=== PATIENT | female | born 1960 | race Caucasian/White ===

== ENCOUNTER 2018-09-14 10:30 | Observation (INO) | payer BC ==
--- NOTE | 2018-09-14 10:43 | PDOC ---
History of Present Illness - General Chief Complaint: Weakness Stated Complaint: WEAKNESS Time Seen by Provider: 09/14/18 10:42 History Source: Patient Exam Limitations: No Limitations - History of Present Illness Initial Comments: 09/14/18 10:51 HPI 57-year-old female with history hypothyroidism, high cholesterol and prediabetes not on medications, NHL (no chemo, on surveillance) presenting with right lower extremity heaviness/weakness after getting out of the shower this morning at approximately 9:45 AM. No prior similar symptoms. Mild right perioral numbness/tingling noted. Most of her symptoms have since resolved. No gait abnormalities noted. no falls. History significant for CAD/MD in her parents. no h/o CVA. Denies fever, chills, chest pain, SOB, palpitation, dizziness, N, V, D, abdominal pain, bladder and bowel problems, urinary sx, leg swelling, No sick contacts or travel. No new changes in medications. - currently on crestor and synthroid, diet controlled for glycemic control Allergies: tetracycline Past Medical History: hypothyroidism, high cholesterol and prediabetes Social history: Lives with family. former smoker. No alcohol. No illicit drugs. Surgical history: appendectomy, rotator cuff surgery ROS Constitutional: no fevers or chills. HEENT: no headache or dizziness. No congestion. No visual/hearing disturbances. CVS: no cp or syncope. Resp: no sob. No cough. Gastrointestinal: no abdominal pain, nausea or vomiting. Genitourinary: no urinary sx, hematuria. MUSCULOSKELETAL: No joint pain and swelling. No neck or back pain. SKIN: no redness or skin changes, no discharge, no rash. No wounds. Hematologic: no easy bruising/bleeding. NEUROLOGIC: No headache, dizziness, LOC or altered mental status. +weakness, numbness or tingling. Allergic/Immunologic: no allergies All other systems reviewed and negative, or as documented in HPI. PE: General: Well appearing, awake and alert, NAD. HEENT: NCAT, PERRL, EOMI, clear conjunctiva, anicteric, moist mucus membranes, clear oropharynx, no oral lesions.. Neck: neck supple, FROM; no carotid bruit. no JVD. Resp: CTAB, normal and even respirations, no respiratory distress CVS: RRR, no murmurs, 2+ peripheral pulses throughout, no peripheral edema Abdomen: soft, NTND, no peritoneal signs. Back: nontender, normal inspection and ROM MSK: no edema, RODRIGUEZ x4, ROM intact. No clubbing or cyanosis. normal bulk and tone. Extremities: no calf tenderness Neuro: Alert, oriented to person time and place. CN II-XII grossly intact. Strength prox and distally 5/5 throughout. Sensation grossly intact to light touch. RODRIGUEZ x4. No cerebellar signs, no dysmetria, bilateral finger to nose and heel to ewing equal and symmetric. Speech clear. Skin: warm and well perfused, cap refill <2 sec, normal color 09/14/18 11:10 tPA Exclusion Checklist 0-3hr - Time Elapsed Date last known well: 09/14/18 Time last known well: 09:45 Elaspsed time: Day(s) and 3 Hour(s) and 3 Minutes - Thrombolytic Therapy Candidate Is the patient eligible for Thrombolytic Therapy?: No - Exclusion Criteria 0-3hr SBP greater than 185 or DBP greater than 110mmHg despite tx: No Recent IC/spinal surgery,head trauma or stroke w/in last 3mo: No Hx of previous IC hemorrhage, IC neoplasm, AVM or aneurysm: No Active internal bleeding: No Blding diathesis(low plt ct, inc PTT,INR>1.7 or use of NOAC): No Symptoms suggest subarachnoid hemorrhage: No CT demonstrates multilobar infarct(>1/3 cerebral hemiphere): No Arterial puncture at noncompressible site in previous 7 days: No Blood glucose concentration less than 50mg/dL (2.7mmol/L): No - Relative Exclusion Criteria 0-3h Life expectancy <1yr/severe co-morbid illness/CURRICULUM ASSISTANT on admit: No : No Patient/family refused: No Rapid improvement: Yes Stroke severity too mild: Yes Recent acute MD (w/in previous 3 months): No Seizure at onset with postictal residual neuro impairments: No Major surgery or serious trauma w/in previous 14 days: No Recent GI or hemorrhage (w/in previous 21 days): No - Ineligibility reason(s) Reasons No tPA given: See reason(s) noted above (resolved symptoms) NIH Stroke Scale - Last Known Well Date/Time & Onset Date Last Known Well: 09/14/18 Time Last Known Well: 09:45 - Initial Evaluation Level of consciousness: Alert Ask patient the month and their age: Answers both correctly Ask patient to open & close eyes; make fist and let go: Obeys both correctly Best gaze (horizontal eye movement): Normal Visual field testing: No visual field loss Facial paresis (Show teeth/raise eyebrows/close eyes tight): Normal symmetrical movement Motor Function: Left Arm: Normal Motor Function: Right Arm: Normal (extends arm 90 (or 45) degrees for 10 seconds without drift Motor Function: Left Leg: Normal (extends leg 30 degrees for 5 seconds without drift) Motor Function: Right Leg: Normal (extends leg 30 degrees for 5 seconds without drift) Limb Ataxia: No ataxia Sensory(Use pinprick test arms,legs,trunk,face/side to side): Normal Best language (Describe picture, name items, read sentences): No Aphasia Dysarthria (read several words): Normal articulation Extinction and Inattention: No abnormality - Total Score NIH Stroke Scale Score: 0 Past History - Past Medical History Allergies/Adverse Reactions: Allergies Allergy/AdvReac Type Severity Reaction Status Date / Time Tetracyclines Allergy Hives Verified 09/14/18 10:32 Home Medications: Ambulatory Orders Aspirin [Aspirin EC] 81 mg PO ASDIR 09/14/18 Levothyroxine [Synthroid -] 100 mcg PO DAILY 09/14/18 Statin 10 mg PO DAILY 09/14/18 COPD: No Diabetes: (PREDIABETIC) Hypercholesterolemia: Yes Thyroid Disease: Yes - Suicide/Smoking/Psychosocial Hx Smoking History: Former smoker Have you smoked in the past 12 months: No Information on smoking cessation initiated: No Hx Alcohol Use: (social) *Physical Exam - Vital Signs Last Vital Signs Temp Pulse Resp BP Pulse Ox 98.7 F 91 H 18 135/70 100 09/14/18 10:30 09/14/18 10:30 09/14/18 10:30 09/14/18 10:30 09/14/18 10:30 Moderate Sedation - Procedure Monitoring Vital Signs: Procedure Monitoring Vital Signs Temperature 98.7 F 09/14/18 10:30 Pulse Rate 91 H 09/14/18 10:30 Respiratory Rate 18 09/14/18 10:30 Blood Pressure 135/70 09/14/18 10:30 O2 Sat by Pulse Oximetry (%) 100 09/14/18 10:30 Heart Score/ECG Review #1 ECG reviewed & interpreted by me at: 10:45 General ECG Interpretation: Sinus Rhythm Compared to previous ECG there are: Previous ECG unavail 09/14/18 12:27 EKG normal sinus rhythm at 91bpm, no interval abnormalities, narrow QRS, ST and T wave segments and morphology normal. ED Treatment Course - LABORATORY CBC & Chemistry Diagram: 09/14/18 10:55 09/14/18 10:55 Medical Decision Making - Medical Decision Making 09/14/18 10:49 See HPI for details Diff dx CVA, neuropathy, TIA. electrolyte/metabolic derangements. arrhythmia, weakness, msk strain, spasm NIHSS zero, no focal neuro deficits as documented, Vital signs reviewed, wnl. Prior notes reviewed, including admissions, discharges and consultations. laboratory results and imaging reviewed, basic labs and lytes wnl Cardiac panel_neg trop, reassuring. lipid panel unremarkable EKG normal sinus rhythm, no interval abnormalities, narrow QRS, ST and T wave segments and morphology normal. Nonischemic Head CT negative for intracranial abnormality or CVA, volume loss noted ED course not Tpa CANDIDATE, as risks outweigh benefits. mild subjective sx pt notes, no neuro deficits elicited, NIHSS zero s/o to THERMODYNAMICS PROFESSOR Gordy. obs tele, r/o TIA vs stroke, with RLE weakness without objective neuro deficits noted)., MRI brain with neg CT imaging. admit to Dr Kumar 09/14/18 12:28 09/14/18 12:48 09/14/18 12:50 *DC/Admit/Observation/Transfer Diagnosis at time of Disposition: Transient right leg weakness - Discharge Dispostion Condition at time of disposition: Stable Decision to Admit order: Yes Decision to Admit order Date/Time: 09/14/18 12:26 Decision to Admit Order Category Date Time Status Decision to Admit to Hospital Routine Admission 09/14/18 12:25 Ordered - Referrals - Patient Instructions - Post Discharge Activity
[2018-09-14] MEDS ORDERED: ALPRAZolam 0.25 MG TABLET PO ONE (10:51)
[2018-09-14] MEDS ORDERED: ALPRAZolam 0.25 MG TABLET ONE (10:53)
[2018-09-14] MEDS: SODIUM CHLORIDE 1,000 ML IV SCH (11:08)
[2018-09-14 11:10] LABS: BASO % 0.7 % (0-2.0); EOS % 1.1 % (0-4.5); HEMATOCRIT 39.6 % (32.4-45.2); HEMOGLOBIN 13.2 GM/dl (10.7-15.3); LYMPH % 42.3 % (8-40); MCH 30.8 pg (25.7-33.7); MCHC 33.4 g/dl (32.0-36.0); MEAN CELL VOLUME 92.2 fl (80-96); MEAN PLT VOLUME 8.3 fl (7.5-11.1); MONO % 6.9 % (3.8-10.2); PLATELET COUNT 251 K/MM3 (134-434); RDW 12.4 % (11.6-15.6)
[2018-09-14 11:39] LABS: INR 1.03 (0.82-1.09); PROTHROMBIN TIME (PATIENT) 11.5 SEC (10.2-13.0)
[2018-09-14 11:41] LABS: ALK PHOS 52 U/L (45-117); ANION GAP 6 MMOL/L (8-16); BILIRUBIN,TOTAL 0.3 mg/dl (0.2-1); BLOOD UREA NITROGEN 17 mg/dl (7-18); CHLORIDE 104 mmol/L (98-107); CHOLESTEROL 195 mg/dl (50-200); CO2 25 mmol/L (21-32); CREATININE 0.6 mg/dl (0.55-1.3); GLUCOSE,RANDOM 112 mg/dl (74-106); HDL CHOLESTEROL 102 mg/dl (40-60); POTASSIUM 4.2 mmol/L (3.5-5.1); SGOT/AST 24 U/L (15-37); SGPT/ALT 25 U/L (13-61); SODIUM 135 mmol/L (136-145); TOT PROT 6.7 g/dl (6.4-8.2); TRIGLYCERIDES 52 mg/dl (0-150)
[2018-09-14 14:47] VITALS: BMI 27.3
--- NOTE | 2018-09-14 16:58 | HP ---
CHIEF COMPLAINT: RLE numbness PCP: Dr. Candy Garcia, [place], [place] [phone] Oncologist: Dr. Alston, [facility], [place], [place] [phone]; Dr. Oneil, [facility] HISTORY OF PRESENT ILLNESS 57 year-old female with a PMH significant for HLD, hypothyroidism, pre-diabetes , migraines, and non-Hodgkins lymphoma. Patient flew to [place] two days ago from [facility] (4 hour flight) to attend a family . She was in her usual state of health until this morning when she woke up feeling a little shaky. She ate breakfast and took a shower. When she came out of the shower she felt a numbness in her right leg that extends from the groin to the ankle. The numbness involves the entire circumference of the leg. She was able to weight bear. She laid down for awhile, but the numbness persisted. She called her cousin who is a nursing pest management supervisor here at [facility] who told her to chew a full- dose ASA which she did. She then came to the emergency department. The numbness of the leg has not changed in character over the course of the day other than it is perhaps mildly improved. The patient exercises regularly and there has been no change in her workout routine. 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 She denies any type of trauma or injury. She has no history of back problems. She denies fever, sweats, chills. No headache, no upper respiratory symptoms. No nausea, vomiting, diarrhea. No urinary tract symptoms. In the past she suffered from migraines but they are now well-controlled; about one migraine per year managed with OTC remedies. 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 Smoking: no Alcohol: occasional Drugs: no Family History: father 87 gastric CA with h/o CAD; mother alive with h/o colon cancer; sister 47 of flu; sister a&w; two children a&w Allergies Tetracyclines Allergy (Verified 09/14/18 10:32) Hives HOME MEDICATIONS: Home Medications Medication Instructions Recorded Aspirin [Aspirin EC] 81 mg PO ASDIR 09/14/18 Levothyroxine [Synthroid -] 100 mcg PO DAILY 09/14/18 Rosuvastatin Calcium [Crestor] 10 mg PO DAILY 09/14/18 REVIEW OF SYSTEMS CONSTITUTIONAL: Absent: fever, chills, diaphoresis, generalized weakness, malaise, loss of appetite, weight change HEENT: Absent: rhinorrhea, nasal congestion, throat pain, throat swelling, difficulty swallowing, mouth swelling, ear pain, eye pain, visual changes CARDIOVASCULAR: Absent: chest pain, syncope, palpitations, irregular heart rate, lightheadedness , peripheral edema RESPIRATORY: Absent: cough, shortness of breath, dyspnea with exertion, orthopnea, wheezing, stridor, hemoptysis GASTROINTESTINAL: Absent: abdominal pain, abdominal distension, nausea, vomiting, diarrhea, constipation, melena, hematochezia GENITOURINARY: Absent: dysuria, frequency, urgency, hesitancy, hematuria, flank pain, genital pain MUSCULOSKELETAL: Absent: myalgia, arthralgia, joint swelling, back pain, neck pain SKIN: Absent: rash, itching, pallor HEMATOLOGIC/IMMUNOLOGIC: Absent: easy bleeding, easy bruising, lymphadenopathy, frequent infections ENDOCRINE: Absent: unexplained weight gain, unexplained weight loss, heat intolerance, cold intolerance NEUROLOGIC: +RLE numbness Absent: headache, focal weakness or paresthesias, dizziness, unsteady gait, seizure, mental status changes, bladder or bowel incontinence PSYCHIATRIC: Absent: anxiety, depression, suicidal or homicidal ideation, hallucinations. PHYSICAL EXAMINATION Vital Signs - 24 hr 09/14/18 09/14/18 09/14/18 10:30 11:34 14:00 Temperature 98.7 F 98.7 F Pulse Rate 91 H Pulse Rate [ 89 82 Left Apical] Respiratory 18 16 16 Rate Blood Pressure 135/70 Blood Pressure 110/66 110/68 [Right Arm] O2 Sat by Pulse 100 98 99 Oximetry (%) 09/14/18 14:24 Temperature 98.5 F Pulse Rate 79 Pulse Rate [ Left Apical] Respiratory 18 Rate Blood Pressure 108/60 Blood Pressure [Right Arm] O2 Sat by Pulse Oximetry (%) GENERAL: Awake, alert, and fully oriented, in no acute distress. HEAD: Normal with no signs of trauma. EYES: Pupils equal, round and reactive to light, extraocular movements intact, sclera anicteric, conjunctiva clear. No lid lag. EARS, NOSE, THROAT: Ears normal, nares patent, oropharynx clear without exudates. Moist mucous membranes. NECK: Normal range of motion, supple without lymphadenopathy, JVD, or masses. LUNGS: Breath sounds equal, clear to auscultation bilaterally. No wheezes, and no crackles. No accessory muscle use. HEART: Regular rate and rhythm, normal S1 and S2 without murmur, rub or gallop. ABDOMEN: Soft, nontender, not distended, normoactive bowel sounds, no guarding, no rebound, no masses. No hepatomegaly or splenomegaly. MUSCULOSKELETAL: Normal range of motion at all joints. No bony deformities or tenderness. No CVA tenderness. UPPER EXTREMITIES: 2+ pulses, warm, well-perfused. No cyanosis. No clubbing. No peripheral edema. LOWER EXTREMITIES: 2+ pulses, warm, well-perfused. No calf tenderness. No peripheral edema. 5/5 motor, 5/5 sensory; full ROM; SLR 90 degress bilaterally Laboratory Results - last 24 hr 09/14/18 09/14/18 09/14/18 10:55 10:55 10:55 WBC 5.0 RBC 4.30 Hgb 13.2 Hct 39.6 MCV 92.2 MCH 30.8 MCHC 33.4 RDW 12.4 Plt Count 251 MPV 8.3 Absolute Neuts (auto) 2.5 Neutrophils % 49.0 Lymphocytes % 42.3 H Monocytes % 6.9 Eosinophils % 1.1 Basophils % 0.7 PT with INR 11.5 INR 1.03 Sodium 135 L Potassium 4.2 Chloride 104 Carbon Dioxide 25 Anion Gap 6 L BUN 17 Creatinine 0.6 Creat Clearance w eGFR 103.41 Random Glucose 112 H Calcium 9.0 Total Bilirubin 0.3 AST 24 ALT 25 Alkaline Phosphatase 52 Troponin I Total Protein 6.7 Albumin 4.0 Triglycerides 52 Cholesterol 195 Total LDL Cholesterol 83 HDL Cholesterol 102 H Blood Type Antibody Screen 09/14/18 09/14/18 09/14/18 10:55 10:55 10:56 WBC RBC Hgb Hct MCV MCH MCHC RDW Plt Count MPV Absolute Neuts (auto) Neutrophils % Lymphocytes % Monocytes % Eosinophils % Basophils % PT with INR INR Sodium Potassium Chloride Carbon Dioxide Anion Gap BUN Creatinine Creat Clearance w eGFR Random Glucose Calcium Total Bilirubin AST ALT Alkaline Phosphatase Troponin I < 0.03 Total Protein Albumin Triglycerides Cholesterol Total LDL Cholesterol HDL Cholesterol Blood Type A POSITIVE A POSITIVE Antibody Screen Negative ASSESSMENT/PLAN: 57 year-old female with a PMH significant for HLD, hypothyroidism, pre-diabetes , migraines, and non-Hodgkins lymphoma. Placed on observation for RLE numbness. RLE numbness --acute onset this morning; able to weight bear, no focal deficits --CT head negative for acute process --Wells score low risk for DVT; will get US RLE to r/o DVT but hold off on VTE prophylaxis pending results --neuro consult requested --no pain, no injury, no trauma --no recent viral illness Non-Hodgkins lymphoma --in April 2016 had routine colonoscopy and polyp found to be Non-Hodgkins lymphoma; has had two subsequent colonoscopies unremarkable; followed regularly by Dr. Alston in [place], PET scan negative; under active surveillance Pre-diabetes --A1C is 5.9; diet controlled Hyperlipidemia --continue Crestor Migraines --stable DVT prophylaxis: subq heparin Dispo: continues to require observation. Visit type - Emergency Visit Emergency Visit: Yes ED Registration Date: 09/14/18 Care time: The patient presented to the Emergency Department on the above date and was hospitalized for further evaluation of their emergent condition. - New Patient This patient is new to me today: Yes Date on this admission: 09/14/18 - Critical Care Critical Care patient: No
[2018-09-14] MEDS ORDERED: ROSUVASTATIN CA 10 MG TABLET (FP) PO SCH (17:16)
[2018-09-14] MEDS: HEPARIN NA (PORCINE) 5,000 UNITS/ML 1ML VIAL SQ SCH (21:48)
--- NOTE | 2018-09-14 21:55 | DS ---
Physical Exam: SUBJECTIVE: Patient seen and examined sitting on edge of bed. Short of breath. SpO2 74% on room air, 91% on 4L. OBJECTIVE: Vital Signs Period Temp Pulse Resp BP Sys/Coy Pulse Ox Last 24 Hr 98.5 F-98.9 F 75-91 16-18 98-135/60-70 98-100 PHYSICAL EXAM GENERAL/NEURO: The patient is awake, alert, and fully oriented, in no acute distress. Morbidly obese. Speech is halting, delayed responses. LUNGS: Distant breath sounds secondary to body habitus HEART: Regular rate and rhythm, S1, S2 ABDOMEN: Soft, nontender, nondistended EXTREMITIES: 2+ pulses, warm, well-perfused, no edema LABS Laboratory Results - last 24 hr 09/14/18 09/14/18 09/14/18 10:55 10:55 10:55 WBC 5.0 RBC 4.30 Hgb 13.2 Hct 39.6 MCV 92.2 MCH 30.8 MCHC 33.4 RDW 12.4 Plt Count 251 MPV 8.3 Absolute Neuts (auto) 2.5 Neutrophils % 49.0 Lymphocytes % 42.3 H Monocytes % 6.9 Eosinophils % 1.1 Basophils % 0.7 PT with INR 11.5 INR 1.03 Sodium 135 L Potassium 4.2 Chloride 104 Carbon Dioxide 25 Anion Gap 6 L BUN 17 Creatinine 0.6 Creat Clearance w eGFR 103.41 Random Glucose 112 H Calcium 9.0 Total Bilirubin 0.3 AST 24 ALT 25 Alkaline Phosphatase 52 Creatine Kinase Troponin I Total Protein 6.7 Albumin 4.0 Triglycerides 52 Cholesterol 195 Total LDL Cholesterol 83 HDL Cholesterol 102 H Blood Type Antibody Screen 09/14/18 09/14/18 09/14/18 10:55 10:55 10:56 WBC RBC Hgb Hct MCV MCH MCHC RDW Plt Count MPV Absolute Neuts (auto) Neutrophils % Lymphocytes % Monocytes % Eosinophils % Basophils % PT with INR INR Sodium Potassium Chloride Carbon Dioxide Anion Gap BUN Creatinine Creat Clearance w eGFR Random Glucose Calcium Total Bilirubin AST ALT Alkaline Phosphatase Creatine Kinase Troponin I < 0.03 Total Protein Albumin Triglycerides Cholesterol Total LDL Cholesterol HDL Cholesterol Blood Type A POSITIVE A POSITIVE Antibody Screen Negative 09/14/18 09/14/18 19:00 19:00 WBC RBC Hgb Hct MCV MCH MCHC RDW Plt Count MPV Absolute Neuts (auto) Neutrophils % Lymphocytes % Monocytes % Eosinophils % Basophils % PT with INR INR Sodium Potassium Chloride Carbon Dioxide Anion Gap BUN Creatinine Creat Clearance w eGFR Random Glucose Calcium Total Bilirubin AST ALT Alkaline Phosphatase Creatine Kinase 115 Troponin I < 0.03 Total Protein Albumin Triglycerides Cholesterol Total LDL Cholesterol HDL Cholesterol Blood Type Antibody Screen HOSPITAL COURSE: Date of Admission:09/14/18 Date of Discharge: 09/14/18 37 year-old female with a PMH significant for asthma, Type II NIDDM, morbid obesity, schizophrenia, and anxiety. Pulmonary embolism --Hypoxic low 80s on admission, tachycardic to 114, d dimer >1600 --now room air 74-76%; 91% on 4L NC --CXR: cardiomegaly, pulmonary vascular congestion --ECG: sinus tach @111bpm; possible right ventricular hypertrophy; IRBBB suspicious for PE --Echo: technically difficult study; ventricles and valves not well visualized; IVC appears dilated suggestive of increased right-sided pressure --Troponin 0.03-->0.0.3-->2.17; discussed with cardiology, likely the result of PE; no lytics for now, continue heparin --anticoagulation: lovenox 100mg x 1 in ED; lovenox 190mg x 1 today at 10:00 ; discussed a/c with pulmonary and with hematology, concern for efficacy of lovenox in patients > 150kg; decision made to give heparin 10,000U loading dose , and then 2570U hourly, PTT goal 60-80 --unable to CT image patient as weight exceeds scanner parameters --US LE negative for DVT Update: 9:00pm PTT 95.8; heparin drip adjusted; accepted to [facility] MICU Bed #9, Dr. [facility] Amb[facility] en route Minutes to complete discharge: 35 Discharge Summary Reason For Visit: WEAKNESS Current Active Problems Transient right leg weakness (Acute) Condition: Stable - Instructions - Home Medications Comprehensive Discharge Medication List: Ambulatory Orders Aspirin [Aspirin EC] 81 mg PO ASDIR 09/14/18 Levothyroxine [Synthroid -] 100 mcg PO DAILY 09/14/18 Rosuvastatin Calcium [Crestor] 10 mg PO DAILY 09/14/18 This patient is new to me today: Yes Date on this admission: 09/14/18 Emergency Visit: Yes ED Registration Date: 09/14/18 Care time: The patient presented to the Emergency Department on the above date and was hospitalized for further evaluation of their emergent condition. Critical Care patient: Yes Total Critical Care Time (in minutes): 10 - Discharge Referral Referred to [facility] No
[2018-09-15] MEDS: HEPARIN NA (PORCINE) 5,000 UNITS/ML 1ML VIAL SQ SCH ×2 (06:35→14:52)
[2018-09-15] MEDS ORDERED: LEVOTHYROXINE NA 100 MCG TABLET (FP) PO SCH (07:00)
[2018-09-15 08:36] LABS: BASO % 0.8 % (0-2.0); EOS % 1.6 % (0-4.5); HEMATOCRIT 39.2 % (32.4-45.2); HEMOGLOBIN 13.2 GM/dl (10.7-15.3); LYMPH % 51.1 % (8-40); MCH 31.1 pg (25.7-33.7); MCHC 33.7 g/dl (32.0-36.0); MEAN CELL VOLUME 92.4 fl (80-96); MEAN PLT VOLUME 8.6 fl (7.5-11.1); MONO % 6.3 % (3.8-10.2); NEUT % 40.2 % (42.8-82.8); PLATELET COUNT 228 K/MM3 (134-434); RBC 4.25 M/mm3 (3.60-5.2); RDW 12.2 % (11.6-15.6); WHITE BLOOD COUNT 3.8 K/mm3 (4.0-10.8)
[2018-09-15 08:44] LABS: ALBUMIN 3.6 g/dl (3.4-5.0); ALK PHOS 47 U/L (45-117); ANION GAP 6 MMOL/L (8-16); BILIRUBIN,TOTAL 0.4 mg/dl (0.2-1); BLOOD UREA NITROGEN 15 mg/dl (7-18); CHLORIDE 109 mmol/L (98-107); CO2 26 mmol/L (21-32); CREATININE 0.6 mg/dl (0.55-1.3); GLUCOSE,RANDOM 106 mg/dl (74-106); MAGNESIUM 1.9 mg/dL (1.8-2.4); POTASSIUM 4.5 mmol/L (3.5-5.1); SGOT/AST 22 U/L (15-37); SGPT/ALT 23 U/L (13-61); SODIUM 141 mmol/L (136-145); TOT PROT 6.3 g/dl (6.4-8.2)
[2018-09-15] MEDS: SODIUM CHLORIDE 1,000 ML IV SCH (10:01)
[2018-09-15] MEDS ORDERED: LORazepam 2 MG/ML SDV VIAL IVPUSH SCH (12:15)
--- NOTE | 2018-09-15 12:52 | DS ---
Physical Exam: SUBJECTIVE: Patient seen and examined. Numbness to RLE persists. Does not interfere with ability to walk, although feels like her leg will give way. OBJECTIVE: Vital Signs Period Temp Pulse Resp BP Sys/Coy Pulse Ox Last 24 Hr 98.2 F-99.1 F 69-82 16-18 98-120/53-71 96-100 PHYSICAL EXAM GENERAL: Awake, alert, and fully oriented, in no acute distress. HEAD: Normal with no signs of trauma. EYES: Pupils equal, round and reactive to light, extraocular movements intact, sclera anicteric, conjunctiva clear. No lid lag. EARS, NOSE, THROAT: Ears normal, nares patent, oropharynx clear without exudates. Moist mucous membranes. NECK: Normal range of motion, supple without lymphadenopathy, JVD, or masses. LUNGS: Breath sounds equal, clear to auscultation bilaterally. No wheezes, and no crackles. No accessory muscle use. HEART: Regular rate and rhythm, normal S1 and S2 without murmur, rub or gallop. ABDOMEN: Soft, nontender, not distended, normoactive bowel sounds, no guarding, no rebound, no masses. No hepatomegaly or splenomegaly. MUSCULOSKELETAL: Normal range of motion at all joints. No bony deformities or tenderness. No CVA tenderness. UPPER EXTREMITIES: 2+ pulses, warm, well-perfused. No cyanosis. No clubbing. No peripheral edema. LOWER EXTREMITIES: 2+ pulses, warm, well-perfused. No calf tenderness. No peripheral edema. NEURO: lower extremities motor, 5/5 sensory; full ROM; SLR 90 degress bilaterally; able to heel to toe walk LABS Laboratory Results - last 24 hr 09/14/18 09/14/18 09/14/18 10:55 19:00 19:00 WBC RBC Hgb Hct MCV MCH MCHC RDW Plt Count MPV Absolute Neuts (auto) Neutrophils % Lymphocytes % Monocytes % Eosinophils % Basophils % Sodium Potassium Chloride Carbon Dioxide Anion Gap BUN Creatinine Creat Clearance w eGFR Random Glucose Calcium Magnesium Total Bilirubin AST ALT Alkaline Phosphatase Creatine Kinase 115 Troponin I < 0.03 Total Protein Albumin Total LDL Cholesterol 83 TSH 09/15/18 09/15/18 07:25 07:25 WBC 3.8 L RBC 4.25 Hgb 13.2 Hct 39.2 MCV 92.4 MCH 31.1 MCHC 33.7 RDW 12.2 Plt Count 228 MPV 8.6 Absolute Neuts (auto) 1.5 Neutrophils % 40.2 L Lymphocytes % 51.1 H Monocytes % 6.3 Eosinophils % 1.6 Basophils % 0.8 Sodium 141 Potassium 4.5 Chloride 109 H Carbon Dioxide 26 Anion Gap 6 L BUN 15 Creatinine 0.6 Creat Clearance w eGFR 103.41 Random Glucose 106 Calcium 9.0 Magnesium 1.9 Total Bilirubin 0.4 AST 22 ALT 23 Alkaline Phosphatase 47 Creatine Kinase Troponin I Total Protein 6.3 L Albumin 3.6 Total LDL Cholesterol TSH 2.75 HOSPITAL COURSE: Date of Admission:09/14/18 Date of Discharge: 09/15/18 Pre hospital course 57 year-old female with a PMH significant for HLD, hypothyroidism, pre-diabetes , migraines, and non-Hodgkins lymphoma. Patient flew to [place] two days ago from [facility] (4 hour flight) to attend a family . She was in her usual state of health until this morning when she woke up feeling a little shaky. She ate breakfast and took a shower. When she came out of the shower she felt a numbness in her right leg that extends from the groin to the ankle. The numbness involves the entire circumference of the leg. She was able to weight bear. She laid down for awhile, but the numbness persisted. She called her cousin who is a nursing room service supervisor here at [facility] who told her to chew a full- dose ASA which she did. She then came to the emergency department. The numbness of the leg has not changed in character over the course of the day other than it is perhaps mildly improved. The patient exercises regularly and there has been no change in her workout routine. 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 She denies any type of trauma or injury. She has no history of back problems. She denies fever, sweats, chills. No headache, no upper respiratory symptoms. No nausea, vomiting, diarrhea. No urinary tract symptoms. In the past she suffered from migraines but they are now well-controlled; about one migraine per year managed with OTC remedies. ER course (1) CT head: negative for acute process Subequent hospital course by problem list Acute CVA --MRI brain: small focal acute infarct in the left granda radiata --US carotids unremarkable --RLE numbness persists but is not affecting gait --seen and evaluated by neuro: maximize statin therapy and daily ASA --offered to have patient stay inpatient to get echo on Monday, but she prefers to follow up with her doctors in [place] Non-Hodgkins lymphoma --in April 2016 had routine colonoscopy and polyp found to be Non-Hodgkins lymphoma; has had two subsequent colonoscopies unremarkable; followed regularly by Dr. Alston in [place] Pre-diabetes --A1C is 5.9; diet controlled Hyperlipidemia --increased Crestor to 40mg Migraines --stable Minutes to complete discharge: 35 Discharge Summary Reason For Visit: WEAKNESS Current Active Problems Transient right leg weakness (Acute) Condition: Improved - Instructions Diet, Activity, Other Instructions: During your hospital stay you were seen and evaluated by a neurologist, Dr. Butt. An MRI brain was performed, and the results are still pending radiological read. Dr. Butt, the hospitalist team, and yourself agreed it was safe to discharge you today pending the final MRI report. We will contact you as soon as it is received. Please call the [facility] on September 17 at [phone] and ask for F[facility] Kaminski. Disposition: HOME - Home Medications Comprehensive Discharge Medication List: Ambulatory Orders Aspirin [Aspirin EC] 81 mg PO ASDIR 09/14/18 Levothyroxine [Synthroid -] 100 mcg PO DAILY 09/14/18 Rosuvastatin Calcium [Crestor] 10 mg PO DAILY 09/14/18 This patient is new to me today: No Emergency Visit: Yes ED Registration Date: 09/14/18 Care time: The patient presented to the Emergency Department on the above date and was hospitalized for further evaluation of their emergent condition. Critical Care patient: No - Discharge Referral Referred to [facility] Med P.C.: No
--- NOTE | 2018-09-15 13:10 | EKG ---
Test Reason : Blood Pressure : / mmHG Vent. Rate : 091 BPM Atrial Rate : 091 BPM P-R Int : 142 ms QRS Dur : 092 ms QT Int : 362 ms P-R-T Axes : 075 052 059 degrees QTc Int : 445 ms NORMAL SINUS RHYTHM POSSIBLE LEFT ATRIAL ENLARGEMENT BORDERLINE ECG NO PREVIOUS ECGS AVAILABLE Confirmed by MD NICOLE, ROSS ([id number]) on 09/15/2018 1:10:35 PM Referred By: ZORA WHITEHEAD Confirmed By:ROSS RIVERA MD
--- NOTE | 2018-09-15 13:55 | CON.NEURO ---
Consult - Past Medical History ...: No - Alcohol/Substance Use Hx Alcohol Use: Yes (social) - Smoking History Smoking history: Former smoker Have you smoked in the past 12 months: No If you are a former smoker, when did you quit?: 1989 Home Medications - Allergies Allergies/Adverse Reactions: Allergies Allergy/AdvReac Type Severity Reaction Status Date / Time Tetracyclines Allergy Hives Verified 09/14/18 10:32 - Home Medications Home Medications: Ambulatory Orders Aspirin [Aspirin EC] 81 mg PO ASDIR 09/14/18 Levothyroxine [Synthroid -] 100 mcg PO DAILY 09/14/18 Rosuvastatin Calcium [Crestor] 10 mg PO DAILY 09/14/18 Physical Exam-Neuro Vital Signs: Vital Signs Temperature 98.9 F 09/15/18 12:00 Pulse Rate 77 09/15/18 12:00 Respiratory Rate 18 09/15/18 12:00 Blood Pressure 120/70 09/15/18 12:00 O2 Sat by Pulse Oximetry (%) 100 09/15/18 12:00 Labs: CBC, BMP 09/15/18 07:25 09/15/18 07:25 INR, PTT INR 1.03 (0.82-1.09) 09/14/18 10:55 Assessment/Plan cc : Strange sensation on right leg , sudden onset and persistent for two days HPI 57 year old female , orginally from [facility] and history of HLD,Prediabetes , Migraine , Non Hodgkins Lymphoma, Hypothyroidism. She was taking shower she felt that her right leg was not feeling well. She feel , she has exert more to lift her leg. She denies any back pain, no dysphagia, dysarthria, diplopia, no arm weakness. Patient had ct scan it was normal. She never had stroke. She do not take aspirin and she do take statin at home. She feels right leg is heavy. 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 Smoking: no Alcohol: occasional Drugs: no Family History: father 87 gastric CA with h/o CAD; mother alive with h/o colon cancer; sister 47 of flu; sister a&w; two children a&w Allergies Tetracyclines Allergy (Verified 09/14/18 10:32) Hives HOME MEDICATIONS: Home Medications Medication Instructions Recorded Aspirin [Aspirin EC] 81 mg PO ASDIR 09/14/18 Levothyroxine [Synthroid -] 100 mcg PO DAILY 09/14/18 Rosuvastatin Calcium [Crestor] 10 mg PO DAILY 09/14/18 ROS, FH,SH reviewed in chart NEUROLOGICAL EXAMINATION Alert oriented x 3, speech is normal, able to repeat EOMI, Pupils reafctive, no face asymmetry, sensation is normal, vf normal by confrontation motor 5/5 all ext, no rigidity no tremors , no ataxia or dysmetria seen sensation to pinprick is normal nih score is 0 and able to s ct head is normal mri showed acute stroke and carotid ultrasound is normal Assessment 57 year old female history of hld, Prediabetes, she has right leg sensation and mri showed left granda radiata ischemic stroke and carotid ultrasound unremarkable Plan: suggest ot take apsirin and high dose of statin ( lipitor 80 mg once a day ) pt , dvt prophylaxis echo stroke education Thanking you so much Lux Butt MD
[2018-09-15 14:57] VITALS: BP 118/65; PULSE 81; TEMP 98.5
== END 2018-09-15 16:34 | disposition home or self-care (01) ==
LOC: FER 10:30 → FM/S 12:25
PROVIDERS: ADMIT Internal Medicine; ATTEND Nurse Practitioner Acute Care
PROC: 3E033GC Introduction of Other Therapeutic Substance into Peripheral Vein, Percutaneous Approach (ICD-10-PCS; principal; 2018-09-14)
PROC: 3E0337Z Introduction of Electrolytic and Water Balance Substance into Peripheral Vein, Percutaneous Approach (ICD-10-PCS; 2018-09-14)
PROC: 3E013GC Introduction of Other Therapeutic Substance into Subcutaneous Tissue, Percutaneous Approach (ICD-10-PCS; 2018-09-14)
DX: I63.9 Cerebral infarction, unspecified (principal); M62.81 Muscle weakness (generalized); E78.5 Hyperlipidemia, unspecified; R20.0 Anesthesia of skin; E03.9 Hypothyroidism, unspecified; R73.03 Prediabetes; C85.80 Other specified types of non-Hodgkin lymphoma, unspecified site; Z87.891 Personal history of nicotine dependence; Z79.82 Long term (current) use of aspirin
CPT/HCPCS: 36415; 70450-TC; 70551-TC; 71046-TC-FY; 80053; 82465; 82550; 83718; 83721; 83735; 84443; 84478; 84484; 85025; 85610; 86850; 86900; 86901; 93005; 93880-TC; 93971-TC; 99285-25; G0378; J1644; J7030